=== PATIENT | male | born 1980 | race African-American/Black ===

== ENCOUNTER 2017-08-03 23:52 | Emergency (ER) | payer OTHER ==
[~2017-08-03] VITALS: Ht 193 cm; Wt 156.5 kg
[~2017-08-03 23:52] MED LIST: AUGMENTIN 875-1 EAC1 ORAL
[2017-08-04] MEDS ORDERED: AMLODIPINE BESY10 MG ORAL (00:04)
[2017-08-04] MEDS ORDERED: Tetanus/Diptheria/Pertussis Vaccine 0.5ml Syr IM ONE (00:30)
[2017-08-04] MEDS ORDERED: Bacitracin Oint UD TOPIC ONE (00:30)
[2017-08-04] MEDS ORDERED: Augmentin 875mg Tab ORAL ONE (00:30)
[2017-08-04 00:33] VITALS: BP 150/92
[2017-08-04] MEDS ORDERED: AUGMENTIN 875-1 EAC1 ORAL (00:44)
[2017-08-04 00:47] VITALS: BP 150/92
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
== END 2017-08-04 00:50 | disposition home or self-care (01) ==
LOC: EMR 08-04 00:24
DX: S61.452A Open bite of left hand, initial encounter (principal); W50.3XXA Accidental bite by another person, initial encounter; Y92.099 Unspecified place in other non-institutional residence as the place of occurrence of the external cause; Y99.0 Civilian activity done for income or pay; Z23 Encounter for immunization; I10 Essential (primary) hypertension; Z91.013 Allergy to seafood
CPT/HCPCS: 90471; 90715; 99284